=== PATIENT | male | born 1950 | race Caucasian/White ===

== ENCOUNTER → 2016-10-13 | Outpatient (CLI) | payer MEDICARE, BC ==
[2016-10-13 12:03] LABS: BASOPHIL% 0.5 % (0-2.5); EOSINOPHIL# 0.2 X10e3 (0-0.7); EOSINOPHIL% 2.8 % (0.0-7.0); HEMATOCRIT 36.9 % (38.0-50.0); HEMOGLOBIN 12.8 gm/dL (13.0-16.0); LYMPHOCYTE# 2.1 X10e3 (1.0-3.5); MEAN CELL VOLUME 87.4 FL (83-96); MEAN CORPUSCULAR HEMOGLOBIN 30.4 PG (28-34); MEAN CORPUSCULAR HGB CONC 34.7 g/dL (30-36); MONOCYTE# 0.7 X10e3 (0-1.0); MONOCYTE% 10.2 % (3.0-12.0); NEUTROPHIL# 3.9 X10e3 (1.5-7.1); NEUTROPHIL% 56.5 % (40-75); PLATELET COUNT 197 X10e3 (140-420); RED BLOOD COUNT 4.23 X10e (3.90-5.60); RED CELL DISTRIBUTION WIDTH 13.1 % (11.0-15.5); WHITE BLOOD COUNT 6.9 X10e3 (4.0-10.5)
[2016-10-13 12:06] LABS: DIFF IND NO
== END | disposition home or self-care (01) ==
LOC: CLAB 11:33
PROVIDERS: Orthopaedic Surgery
DX: L08.9 Local infection of the skin and subcutaneous tissue, unspecified (principal)
CPT/HCPCS: 36415; 85025; 85652; 86140; 87070; 87075; 87205

== ENCOUNTER → 2016-10-19 | Outpatient (CLI) | payer MEDICARE, BC ==
--- NOTE | ~2016-10-19 | NM71 ---
[facility] A Service of [facility] & [facility] RADIOLOGY TEXT RESULTS PATIENT: STEPH VARELA LOCATION: [facility] : 54 UNIT #: [id number] AGE: [address]: Som Mac MD SEX: M ORDER DR: [id number] [facility] [address] [place], [place] [address] [id number] O MR#: [id number] Acc #: [id number] NAME: STEPH VARELA : 1950 SEX: M STUDY DATE/TIME: 10/19/2016 12:09 UNIT: [facility] ROOM: STUDY DESCRIPTION: DE Radiopharm Loc Inflam Limit Attending Physician: Cha Mac M.D. Referring Physician: Cha Mac M.D. Ordering Physician: Cha Mac M.D. Primary Care Physician: Michael Pratt M.D. MEDICAL IMAGING REPORT This report is preliminary unless electronic signature is present EXAM Tagged white cell study, 10/19/2016 HISTORY 66-year-old male with right great toe fracture or dislocation 07/28/2016. 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 Wound is closed but continued foot and ankle swelling and redness. Patient also has a blister developing on the lateral aspect of the right foot from medical boot. Patient states blister has healed. COMPARISON MRI of the right foot 08/24/2016. Right foot films 10/05/2016. TECHNIQUE 4-hour imaging was performed over the feet and ankles following the intravenous administration of 29.3 mCi of Tc-99m Ceretec labeled white blood cells. FINDINGS Examination demonstrates increased flow to the right foot. There are foci of increased uptake within the right foot with 2 distinct foci of increased uptake within the medial aspect of the right foot corresponding to the expected position of the remaining first metatarsal head and slightly distal within the adjacent soft tissues. This is compatible with a focal site of active inflammation. Bilobed focus of increased uptake is also seen in the lateral aspect of the right foot which appears superficial and most likely represents uptake within the lateral soft tissues and probably related to patient's underlying blister or lateral wound. No other foci of increased uptake is seen within the right foot. Normal flow and activity seen within the left foot. IMPRESSION STS. [facility] A Service of [facility] & [facility] RADIOLOGY TEXT RESULTS PATIENT: STEPH VARELA LOCATION: [facility] : 54 UNIT #: [id number] AGE: [address]: Som Mac MD SEX: M ORDER DR: Abnormal Tc-99m labeled white blood cell study with several foci of abnormal increased uptake within the right forefoot. Focus of increased uptake is seen in the expected position of the distal first metatarsal and corresponds to a site of amputation and would support continued active inflammatory or infectious process. There is also a smaller focus of increased uptake within the slightly more distal soft tissues and may correspond to some residual inflammation within the adjacent soft tissues. Additional bilobed collection or focus of increased uptake is seen in the lateral aspect of the right foot. This appears very superficial and by report, the patient has a healed blister or wound along the lateral aspect of the right foot and this would support an active inflammatory process within the lateral soft tissues. No other foci of abnormal uptake identified. Left foot is normal. Dictated by... Josesito Retana M.D. THIS IS AN ELECTRONICALLY VERIFIED REPORT Josesito Retana M.D. at 10/22/2016 4:03 PM Dee TD: 10/20/2016 16:00 JOB #: [id number] MEDICAL IMAGING REPORT Page 1 of 1 COPY
== END | disposition home or self-care (01) ==
LOC: CNUC 06:56
DX: T81.4XXA Infection following a procedure, initial encounter (principal); M86.9 Osteomyelitis, unspecified; Z98.890 Other specified postprocedural states; R94.8 Abnormal results of function studies of other organs and systems
CPT/HCPCS: 78805; A9569